=== PATIENT | male | born 1945 | race Caucasian/White ===

== ENCOUNTER → 2018-07-31 12:48 | Outpatient (REF) | payer MEDICARE, SELFPAY | LOC: LAB 12:48 | PROVIDERS: Visit Provider Internal Medicine | DX: R30.0 Dysuria (principal) | CPT/HCPCS: 87086 ==

== ENCOUNTER → 2020-08-12 09:20 | Outpatient (CLI) | payer MEDICARE, SELFPAY ==
--- NOTE | 2020-08-12 09:43 | DI.CT.S_ITS ---
PROCEDURE: CT ABDOMEN PELVIS W CON INDICATIONS: ADM PELVIS PAIN TECHNIQUE: After the administration of oral and intravenous contrast, 5 mm thick sections acquired from the diaphragms to the symphysis. 5 mm thick coronal and sagittal reformats were performed. For radiation dose reduction, the following was used: automated exposure control, adjustment of mA and/or kV according to patient size. COMPARISON: None. FINDINGS: ABDOMEN: Lung bases: Normal Presumed cyst/hemangioma seen in the right hepatic lobe 2.7 x 1.9 cm. on image 16/2 measuring. Hepatic steatosis. The gallbladder is grossly unremarkable.. Bile ducts: Normal Pancreas: Normal Spleen: Normal Adrenal glands: Normal No hydronephrosis. Subcentimeter renal foci, statistically cysts, although technically too small to characterize accurately and therefore nonspecific. Stomach: Normal Bowel: Normal No free fluid or air. Colonic diverticulosis is seen , and there is questionable long segment mural thickening raising possibility of acute on chronic diverticulitis however no discrete focal inflamed diverticulum is seen. There is minimal if any adjacent inflammatory fat stranding. Abdominal nodes: Normal Aorta and IVC: Normal in size. Scattered vascular calcifications incidentally noted in the aorta. Ventral wall: Normal PELVIS: Bladder: Normal. Inguinal: Normal Pelvic nodes: Normal Spondylytic changes and facet arthropathy. No vertebral body compression fracture. IMPRESSION: Long segment mural thickening involving the distal sigmoid colon raising possibility of acute on chronic low-grade diverticulitis however technically age indeterminate in the absence of prior studies for comparison. Recommend clinical correlation. No adjacent inflammatory fat stranding. Dictated by: Bob Adams M.D. on 08/12/2020 at 11:39 Approved by: Bob Adams M.D. on 08/12/2020 at 11:43
[2020-08-12 10:17] LABS: Add Manual Diff / Slide Review NO; Basophils Absolute Auto 100 /uL (0-100); Basophils Percent Auto 1.6 % (0-2); Eosinophils Absolute Auto 300 /uL (0-450); Eosinophils Percent Auto 4.4 % (2-4); Hematocrit 36.3 % (41-53); Hemoglobin 12.1 g/dL (13.5-17.5); Lymphocytes Absolute Auto 2100 /uL (1100-4500); Lymphocytes Percent Auto 36.1 % (25-40); Mean Corpuscular HGB Conc 33.4 % (30-36); Mean Corpuscular Hemoglobin 33.2 PG (26-34); Mean Corpuscular Volume 99.5 fL (80-100); Monocytes Absolute Auto 400 /uL (0-900); Monocytes Percent Auto 6.8 % (3-14); Neutrophils Absolute Auto 3000 /uL (1500-7000); Neutrophils Percent Auto 51.1 % (50-75); Platelet Count 225 X10^3/uL (150-400); Red Blood Cell Count 3.65 X10^6/uL (4.5-5.9); Red Cell Distribution Width 22.8 % (11.6-14.8); White Blood Cell Count 5.9 X10^3/uL (4.5-11.0)
[2020-08-12 10:25] LABS: Alanine Aminotransferase 14 IU/L (<50); Albumin 4.4 g/dL (3.5-5.0); Albumin Globulin Ratio 1.3 (1.0-2.8); Alkaline Phosphatase 76 U/L (38-126); Aspartate Aminotransferase 24 IU/L (17-59); Bilirubin Total 0.6 mg/dL (0.2-1.3); Blood Urea Nitrogen 22 mg/dL (9-20); Calcium 9.3 mg/dL (8.4-10.2); Carbon Dioxide 27 mmol/L (22-32); Chloride 106 mmol/L (98-107); Estimated Glomerular Filt Rate > 60.0 mL/min (>60); Globulin 3.5 g/dL (1.7-4.1); Glucose 102 mg/dL (80-110); HEMOLYSIS < 15 (0-50); Potassium 4.5 mmol/L (3.4-5.1); Sodium 137 mmol/L (137-145); Total Protein 7.9 g/dL (6.3-8.2)
[2020-08-12 10:55] LABS: Anisocytosis 2+; Macrocytosis 1+; Target Cells 1+
[2020-08-13 08:14] LABS: Iron 130 ug/dL (49-181)
[2020-08-13 08:49] LABS: Ferritin 931 ng/mL (18-464)
[2020-08-13 09:19] LABS: Folate 9.6 ng/mL (2.76-20.0)
== END ==
PROVIDERS: Referring Provider Physician Assistant; Visit Provider Physician Assistant Medical
DX: R10.9 Unspecified abdominal pain (principal); K57.93 Diverticulitis of intestine, part unspecified, without perforation or abscess with bleeding; D64.9 Anemia, unspecified
CPT/HCPCS: 36415; 74177; 80053; 82728; 82746; 83540; 85025

== ENCOUNTER → 2020-08-13 13:07 | Outpatient (ROUT) | payer MEDICARE, SELFPAY ==
[2020-08-13 14:22] LABS: Clostridium Difficile Tox PCR Negative for C. diff
[2020-08-15 14:12] LABS: H. Pylori Antigen Stool Negative (Negative)
== END ==
PROVIDERS: Visit Provider Physician Assistant
DX: R19.7 Diarrhea, unspecified (principal); R10.9 Unspecified abdominal pain
CPT/HCPCS: 87045; 87077; 87177; 87186; 87329; 87338; 87493; 87899

== ENCOUNTER → 2020-08-16 15:17 | Outpatient (ROUT) | payer OTHER, SELFPAY ==
[2020-08-16 15:30] LABS: Add Manual Diff / Slide Review NO; Basophils Absolute Auto 100 /uL (0-100); Basophils Percent Auto 1.2 % (0-2); Eosinophils Absolute Auto 200 /uL (0-450); Eosinophils Percent Auto 2.7 % (2-4); Hematocrit 37.1 % (41-53); Hemoglobin 12.4 g/dL (13.5-17.5); Lymphocytes Absolute Auto 2200 /uL (1100-4500); Mean Corpuscular HGB Conc 33.5 % (30-36); Mean Corpuscular Hemoglobin 33.8 PG (26-34); Mean Corpuscular Volume 100.9 fL (80-100); Monocytes Absolute Auto 300 /uL (0-900); Monocytes Percent Auto 5.2 % (3-14); Neutrophils Absolute Auto 3500 /uL (1500-7000); Neutrophils Percent Auto 55.9 % (50-75); Platelet Count 252 X10^3/uL (150-400); Red Blood Cell Count 3.67 X10^6/uL (4.5-5.9); Red Cell Distribution Width 22.8 % (11.6-14.8); White Blood Cell Count 6.2 X10^3/uL (4.5-11.0)
[2020-08-16 15:35] LABS: Alanine Aminotransferase 13 IU/L (<50); Albumin 4.3 g/dL (3.5-5.0); Albumin Globulin Ratio 1.3 (1.0-2.8); Alkaline Phosphatase 81 U/L (38-126); Aspartate Aminotransferase 23 IU/L (17-59); BUN Creatinine Ratio 14.2 (6-22); Bilirubin Total 0.5 mg/dL (0.2-1.3); Blood Urea Nitrogen 15 mg/dL (9-20); Calcium 9.2 mg/dL (8.4-10.2); Carbon Dioxide 26 mmol/L (22-32); Chloride 107 mmol/L (98-107); Estimated Glomerular Filt Rate > 60.0 mL/min (>60); Globulin 3.2 g/dL (1.7-4.1); Glucose 97 mg/dL (80-110); HEMOLYSIS < 15 (0-50); Iron 171 ug/dL (49-181); Lipase 82 U/L (23-300); Potassium 4.6 mmol/L (3.4-5.1); Sodium 142 mmol/L (137-145); Total Protein 7.5 g/dL (6.3-8.2)
[2020-08-16 15:45] LABS: Total Iron Binding Capacity 217 ug/dL (261-462)
[2020-08-16 15:48] LABS: Erythrocyte Sedimentation Rate 33 MM/HR (0-15)
[2020-08-16 16:17] LABS: Anisocytosis 1+; Hypochromasia 1+
[2020-08-16 16:57] LABS: Ferritin 1190 ng/mL (18-464)
== END ==
PROVIDERS: Visit Provider Physician Assistant
DX: K57.93 Diverticulitis of intestine, part unspecified, without perforation or abscess with bleeding (principal); R10.84 Generalized abdominal pain
CPT/HCPCS: 80053; 82728; 83540; 83550; 83690; 85025; 85651